=== PATIENT | male | born 1945 | race Two or more races ===

== ENCOUNTER 2023-10-10 12:37 | Inpatient (IN) | payer SELFPAY ==
[2023-10-10] VITALS (21 sets, daily range): BP systolic 139–187; BP diastolic 81–130; PULSE 78–171; RESP 16–30; TEMP 36.2–36.7; O2SAT 94–100
--- NOTE | ~2023-10-10 | XR_ITS ---
Portable chest x-ray Comparison: 10/10/2023 Clinical History: Shortness of breath Findings: Suspected minimal pleural effusions and minimal groundglass pulmonary disease. Cardiomedi astinal silhouette is stable. Bones and soft tissues are unremarkable. Impression: Suspected minimal pulmonary edema and minimal effusions. Reviewed, dictated and finalized at [facility]. DRIVER SUPERVISOR Impression: Suspected minimal pulmonary edema and minimal effusions.
--- NOTE | ~2023-10-10 | US_ITS ---
Duplex Sonography of the bilateral lower extremities: Indication: Swelling Sagittal and transverse B-mode images as well as color-flow imaging were performed on the right and l eft femoral and popliteal veins. B-mode examination was done without and with compression in the tra nsverse plane. There is good visualization of the bilateral common femoral, proximal profunda femora l, superficial femoral, greater saphenous, and popliteal veins. Normal flow was seen on color-flow im aging. Normal compressibility was demonstrated. Visualized calf veins are also patent. Impression: No evidence of deep vein thrombosis involving either lower extremity. Reviewed, dictated and finalized at location M. CLE TAXI DRIVER Impression: No evidence of deep vein thrombosis involving either lower extremit y.
--- NOTE | ~2023-10-10 | XR_ITS ---
EXAMINATION: XR chest 1V portable INDICATION: Tachycardia TECHNIQUE: Portable AP chest at 1400 hours COMPARISON: None available FINDINGS: There are mild interstitial and airspace opacities throughout the left lung and in the righ t lung base. No pleural effusion or pneumothorax. The cardiomediastinal silhouette is normal. IMPRESSION: 1. Interstitial and airspace opacities throughout the left lung and in the right lung base, consisten t with atelectasis versus pneumonia versus pulmonary edema. Reviewed, dictated and finalized at location L. DESIGN ENGINEER IMPRESSION: 1. Interstitial and airspace opacities throughout the left lung and in the righ t lung base, consistent with atelectasis versus pneumonia versus pulmonary moni savi
--- NOTE | ~2023-10-10 | CT_ITS ---
EXAMINATION: CTA chest PE protocol DATE: 10/10/2023 16:06 INDICATION: Dyspnea. TECHNIQUE: Computed tomography angiography (CTA) of the chest was performed with 100 mL Omnipaque-350 intravenous contrast timed to evaluate the pulmonary arteries. Coronal maximum intensity projection 3D-reconstructions were created by the technologist. Automated exposure control and iterative reconst ruction technique were employed. The dose-length product was 535.90 mGy-cm. COMPARISON: Chest single view 10/10/2023 FINDINGS: There is mild scarring at the lung apices. There are moderate-sized right and small left pl eural effusions. There is a 4 mm nodule in right upper lobe, likely benign. There is septal thickenin g in the upper lobes with small groundglass opacities, likely mild pulmonary edema. There is dependen t atelectasis in right lower lobe. Cardiomegaly is noted. There are coronary artery calcifications. T here is a small pericardial effusion. There is no pulmonary embolus. There are bridging endplate oste ophytes at multiple levels in the spine, consistent with diffuse idiopathic skeletal hyperostosis (DI SH). There is moderate thoracic spondylosis. IMPRESSION: 1. No pulmonary embolus. 2. Mild pulmonary edema. 3. Moderate-sized right and small left pleural effusions. Reviewed, dictated and finalized at location E. ICIAN COMPENSATION ANALYST
--- NOTE | 2023-10-10 12:43 | ECG_ITS ---
Measurements Intervals [place] Rate: 146 P: HI: 0 QRS: -46 QRSD: 88 T: 57 QT: 287 QTc: 448 Interpretive Statements ATRIAL FIBRILLATION WITH RAPID VENTRICULAR RESPONSE MARKED LEFT AXIS DEVIATION [QRS AXIS < -30] POSSIBLE ANTERIOR MYOCARDIAL INFARCTION , OF INDETERMINATE AGE [30 ms Q WAVE IN V3/V4, OR R < 0.2 mV IN V4] NO PREVIOUS ECG AVAILABLE FOR COMPARISON Electronically Signed On 10-10-2023 15:03:27 ASSISTANT GOLF COURSE SUPERINTENDENT by Jose Mason M.D.
[2023-10-10] MEDS: dilTIAZem HCl INJ 25 MG/5 ML VIAL 10 MG IV PUSH (13:25)
[2023-10-10] MEDS: dilTIAZem 100 MG/100 ML 100 MG/100 ML BAG IV CONT (13:31)
[2023-10-10 13:51] LABS: Basophils Percent Auto 0.3 % (0.2-1.2); Eosinophils Absolute Auto 0.2 K/mm3 (0-0.3); Eosinophils Percent Auto 2.7 % (0-4.4); Hematocrit 46.3 % (42.0-52.0); Hemoglobin 14.6 g/dL (14.0-18.0); Immature Granulocyte Absolute 0.02 K/mm3 (0.00-0.031); Immature Granulocyte Percent A 0.3 % (0-0.5); Lymphocytes Absolute Auto 2.11 K/mm3 (0.9-3.2); Mean Corpuscular HGB Conc 31.5 g/dl (32-36); Mean Corpuscular Hemoglobin 28.7 pg (26-34); Mean Platelet Volume 9.9 fl (7.4-10.4); Monocytes Absolute Auto 0.8 K/mm3 (0.1-0.6); Monocytes Percent Auto 10.7 % (2.6-8.5); Neutrophils Absolute Auto 3.9 K/mm3 (1.3-6.7); Platelet Count Result 242 k/mm3 (150-375); Red Blood Count 5.09 M/mm3 (4.6-6.20); Red Cell Distribution Width 13.2 % (11.5-14.5)
--- NOTE | 2023-10-10 13:51 | ECG_ITS ---
Measurements Intervals [place] Rate: 108 P: TN: 0 QRS: -44 QRSD: 76 T: 61 QT: 347 QTc: 466 Interpretive Statements ATRIAL FIBRILLATION WITH RAPID VENTRICULAR RESPONSE MARKED LEFT AXIS DEVIATION [QRS AXIS < -30] COMPARED TO ECG 10/10/2023 12:48:44 VENTRICULAR RATE IS SLOWER NOW Electronically Signed On 10-10-2023 15:04:59 VASCULAR TECHNOLOGIST SONOGRAPHER by Jose Mason M.D.
[2023-10-10 14:01] LABS: Prothrombin Time 13.6 Seconds (11.1-14.7)
[2023-10-10 14:02] LABS: Partial Thromboplastin Time 34.7 SECONDS (22.3-36.8)
[2023-10-10 14:09] LABS: NT Pro B Type Natriuretic Pept 3700 pg/mL (19.9-100); Troponin I < 0.012 ng/mL (0.000-0.034)
[2023-10-10 14:11] LABS: Alanine Aminotransferase 50 U/L (6-50); Albumin Level 3.8 g/dL (3.5-5.1); Alkaline Phosphatase 50 U/L (38-126); Anion Gap 5 mmol/L (8-16); Aspartate Amino Transferase 48 U/L (17-59); Bilirubin,Total 0.8 mg/dL (0.2-1.3); Blood Urea Nitrogen 17 mg/dL (9-20); Calcium 9.3 mg/dL (8.4-10.2); Carbon Dioxide 31 mmol/L (22-30); Chloride 102 mmol/L (98-107); Estimated CRCL calculation 81 ml/min; Estimated Glomerular Filt Rate > 60; Glucose 114 mg/dL (65-110); Magnesium 2.1 mg/dL (1.6-2.3); Potassium 4.5 mmol/L (3.4-5.0); Sodium 138 mmol/L (137-145)
[2023-10-10 14:20] LABS: Ethanol < 10 mg/dL (<10)
[2023-10-10 14:32] LABS: Magnesium 2.1 mg/dL (1.6-2.3)
[2023-10-10 14:39] LABS: D Dimer 1.18 ug/mL (<0.48)
[2023-10-10 14:49] LABS: Influenza A QL RT-PCR Negative (Negative); Influenza B QL RT-PCR Negative (Negative); RSV RNA, RT-PCR Positive (Negative); SARS-CoV-2 RNA PCR Negative (Negative)
--- NOTE | 2023-10-10 15:04 | ED.GENADULT ---
HPI - General Adult General Chief complaint: Recheck/Abnormal Lab/Rx Stated complaint: elevated BNP Time Seen by Provider: 10/10/23 13:47 Source: patient and family History of Present Illness HPI narrative: Patient is a 78-year-old male presents to the emergency department accompanied by his son and [id number] for difficulty breathing. patient is had difficulty breathing for years however it has been getting progressively worse over the past 10 days especially with exertion and requiring less exertion to get more short of breath in addition he is also having orthopnea. Patient has a history of heart disease has 2 stents which were placed in May and the where he lives issues currently visiting family. Family took the patient to 1 of the family members primary care physician who did labs and told to come to the your for further evaluation. Patient notably is on chlorthalidone 25 mg every other day and ran out of it and has not had any for the past 2 weeks and is also having increased leg swelling bilaterally. No history of blood clots. Patient denies any chest pain, bloody bowel movements, abdominal pain, nausea, vomiting, diarrhea, urinary discomfort, fever. patient does not have any history of abnormal heart rhythms. Patient is not on any blood thinners. Patient does not have any known history of heart failure and family does not know when the last echocardiogram was performed. Patient has had a cough for the past couple days that is overall nonproductive. Related Data Allergies Allergy/AdvReac Type Severity Reaction Status Date / Time No Known Allergies Allergy Verified 10/10/23 13:15 Review of Systems Review of Systems: A 10 system review of systems was completed on the patient and is negative except for what is stated in the HPI. Nursing and ancillary documentation was reviewed. PMFSH Comments At time of signature, I have reviewed and agree with nursing past medical, surgical, social and family history unless otherwise noted. Please see the nursing chart for further information. There is no relevant family history pertinent to the presenting complaint. Exam Narrative: CONST: No acute distress. Well nourished. HENMT: Head is normocephalic and atraumatic. Moist mucous membranes. No posterior oropharynx erythema. EYES: No conjunctival icterus, injection, or pallor. PERRL. NECK: No meningeal signs. RESP: Able to speak in full sentences. Normal respiratory effort. Diminished breath sounds at the bilateral bases of the lungs. No rhonchi or rales or wheeze. CARDIO: Regular rate. Irregularly irregular rhythm. 2+ DP and radial pulses bilaterally. GI: Nondistended. No tenderness to palpation. Soft. : No CVA tenderness to palpation. SKIN: No rashes or lesions noted on exposed skin. NEURO: Oriented x3. Moves all extremities. EXTREM/MSK/BACK: 1+ bilateral lower extremity pitting edema. PSYCH: Normal affect. Course Vital Signs Vital signs: Vital Signs Temperature 98.0 F 10/10/23 12:39 Pulse Rate 78 10/10/23 12:39 Respiratory Rate 16 10/10/23 12:39 Blood Pressure 163/130 H 10/10/23 12:39 Pulse Oximetry 98 10/10/23 12:39 Oxygen Delivery Room Air 10/10/23 12:39 Temperature 98.0 F 10/10/23 12:39 Pulse Rate 93 10/10/23 14:17 Respiratory Rate 22 H 10/10/23 14:17 Blood Pressure 143/92 H 10/10/23 14:17 Pulse Oximetry 97 10/10/23 14:17 Oxygen Delivery Room Air 10/10/23 12:39 Medical Decision Making MDM Narrative Medical decision making narrative: Patient presents with the above complaint. Initial vitals are remarkable for no significant abnormalities. Physical examination as noted above. Plan discussed: Laboratory analysis, EKG, chest x-ray, continues cardiac monitoring, continuous pulse oximetry, 80 mg IV push Lasix for suspected heart failure exacerbation, diltiazem 10 mg IV push for atrial fibrillation with rapid ventricular response,
[2023-10-10 16:39] LABS: Appearance Urine Clear (Clear); Bacteria Urine None Seen /hpf; Bilirubin Urine Negative (Negative); Blood Urine Negative (Negative); Calcium Oxalate Crystals Urine Present /hpf; Color Urine Yellow (Yellow); Glucose Urine UA Negative (Negative); Ketones Urine Negative (Negative); Leukocyte Esterase Ur Negative LEU/UL (Negative); Need Manual Microscopic Reviewed; Nitrate Urine Negative (Negative); Protein Urine Trace mg/dL (Negative); RBC Urine 0-2 /hpf (0-2); Specific Grav Ur 1.035 (1.001-1.035); Squamous Epithelial Cell Urine None seen /hpf (Few); WBC Urine 0-5 /hpf; pH Urine 5.5 (5.0-9.0)
[2023-10-10 16:40] LABS: Add Urine Microscopic? YES
[2023-10-10 16:41] LABS: Troponin I < 0.012 ng/mL (0.000-0.034)
[2023-10-10 16:49] LABS: Amphetamine Screen Urine Negative (Negative); Barbiturate Screen Urine Negative (Negative); Benzodiazepines Screen Urine Negative (Negative); Cannabinoid Screen Urine Negative (Negative); Cocaine Screen Urine Negative (Negative); Methadone Screen Urine Negative (Negative); Opiate Screen Urine Positive (Negative); Phencyclidine Screen Urine Negative (Negative)
[2023-10-10] MEDS: FUROSEMIDE INJ 100 MG/10 ML VIAL 80 MG IV PUSH (17:43)
[2023-10-10] MEDS: AZITHROMYCIN 500 MG/NS 250 ML 500 MG/250 ML BAG 250 MG IVPB (20:05)
--- NOTE | 2023-10-10 20:57 | PC.NURSE ---
This patient, Terra Orantes, was admitted to IMU Room 232-01. Patient/family oriented to hospital policies and general routines including ID bracelet, bed and alarms, visiting hours, pain management, procedures, bathroom and other care routines, personal items, smoking policy, room service/diet, and visiting hours. Information on how to activate the Rapid Response Team has been discussed. Patient/Family are encouraged to report perceived risks to care and to ask questions if they do not understand what they are told or what they should do.
--- NOTE | 2023-10-10 22:21 | PM.IMHP ---
H&P: HPI History of Present Illness Date/Time: 10/10/23 18:00 Chief Complaint: Shortness of breath. Narrative: This is a pleasant 78-year-old gentleman with history of stroke, coronary artery disease and history of stents as recent as 4 months ago, hypertension, type 2 diabetes mellitus, and asthma who presented to the emergency department via private vehicle for evaluation of shortness of breath. The patient's primary language is tim and his son and [id number] translate the following history. The patient lives in [place], [place] and has been staying with his family here for the last couple of months. Two weeks ago he ran out of his chlorthalidone but he has been taking his other medications as prescribed. Over the course of the last 10 days he has developed a cough, increasing shortness of breath on lesser and lesser exertion, and swelling in his lower extremities. Due to ongoing symptoms he was seen by his daughter in laws primary care provider and he was told to come to the ER today has lab work obtained at that visit showed an elevated proBNP. He denies fever, chills, sweats, chest and pleuritic pain, palpitations, dizziness, lightheadedness, nausea, vomiting, diarrhea, and calf pain. In the ED: He was afebrile on arrival. Blood pressures have been running high, in the 150s to 170s systolic. EKG on arrival showed atrial fibrillation with rapid ventricular response (patient is asymptomatic with this and has no known history of such) when he was started on a diltiazem drip with improvement in his rate. CMP and CBC were reviewed and pretty unremarkable. ProBNP was 3700. Initial troponin was negative and TSH was normal. He tested positive for RSV. Chest CTA showed no evidence of pulmonary embolus, mild pulmonary edema, and moderate size right and small left pleural effusions. He was started on a diltiazem drip as detailed above in received 80 mg IV furosemide in addition to 1 dose of azithromycin and ceftriaxone for possible pneumonia. He is being admitted in this setting for further treatment. Review of Systems Review of Systems: Twelve systems were reviewed and are negative except for as per HPI. [facility] Past Medical History Medical History (Updated 10/10/23 @ 22:28 by Lia Posey PA-C) Benign prostatic hyperplasia Carotid artery disease Cerebrovascular accident Coronary artery disease Hyperlipidemia Hypertension Surgical History Surgical History (Updated 10/10/23 @ 22:28 by Lia Posey PA-C) History of cardiac catheterization History of coronary artery stent placement (05/2023) X2 History of left-sided carotid endarterectomy Family History Family History Sibling Cerebrovascular accident Acute myocardial infarction Sibling Cerebrovascular accident Acute myocardial infarction Other Diabetes mellitus Social History Social History (Updated 10/10/23 @ 22:29 by Lia Posey PA-C) Social History: Surrogate medical decision maker: Geovany Griffin ([id number]) or Doni Orantes (son). Code status: Full code. Smoking status: Never smoker Alcohol intake: current Alcohol use details: Social alcohol use in moderation. Substance use: never Other substance usage details: occasional alcohol use Do You Feel Safe in your Home?: Yes Lack of Transportation: No Lack of Food: Never True Current Housing: I Have Housing Concerned About Future Housing: No Difficulty Paying Gas/Electric Bills: No Difficulty Paying for Meds: No Currently Unemployed: No Education: Decline to Answer Difficulty w/ Childcare or Family Care: No Additional living arrangements comments: Lives in [place], [place]. Currently visiting son and uafoahbe-mw-pjh in [place]. Additional occupation/education comments: Retired. Spiritual care concerns: No Meds Home Medications and Allergies Home Medications Medication Instructions
[2023-10-11] VITALS (17 sets, daily range): BP systolic 104–163; BP diastolic 59–100; PULSE 62–116; RESP 16–21; TEMP 36.1–37.2; O2SAT 95–98
[2023-10-11 05:46] LABS: Anion Gap 5 mmol/L (8-16); Blood Urea Nitrogen 14 mg/dL (9-20); Calcium 8.8 mg/dL (8.4-10.2); Carbon Dioxide 30 mmol/L (22-30); Chloride 102 mmol/L (98-107); Estimated CRCL calculation 80 ml/min; Estimated Glomerular Filt Rate > 60; Glucose 102 mg/dL (65-110); Magnesium 2.1 mg/dL (1.6-2.3); Potassium 3.7 mmol/L (3.4-5.0); Sodium 137 mmol/L (137-145)
[2023-10-11] MEDS: dilTIAZem 100 MG/100 ML 100 MG/100 ML BAG IV CONT (06:08)
[2023-10-11 08:53] LABS: Hematocrit 43.3 % (42.0-52.0); Hemoglobin 13.6 g/dL (14.0-18.0); Mean Corpuscular HGB Conc 31.4 g/dl (32-36); Mean Corpuscular Hemoglobin 28.8 pg (26-34); Mean Corpuscular Volume 91.5 fl (80-100); Platelet Count Result 240 k/mm3 (150-375); Red Blood Count 4.73 M/mm3 (4.6-6.20); Red Cell Distribution Width 13.3 % (11.5-14.5); White Blood Count 6.1 K/mm3 (4.5-10.0)
[2023-10-11] MEDS: METOPROLOL TARTRATE 50 MG TAB PO (10:02)
[2023-10-11] MEDS: TAMSULOSIN HCL 0.4 MG CAPSULE PO (10:02)
[2023-10-11] MEDS: APIXABAN 5 MG TABLET PO (10:02)
[2023-10-11] MEDS: ROSUVASTATIN 10 MG TABLET 40 MG PO (10:03)
[2023-10-11] MEDS: FUROSEMIDE INJ 40 MG/4 ML VIAL IV PUSH ×3 (10:03→17:50)
[2023-10-11] MEDS: MONTELUKAST SODIUM 10 MG TABLET PO (10:03)
[2023-10-11] MEDS: CHLORTHALIDONE 25 MG TABLET PO (12:30)
--- NOTE | 2023-10-11 13:11 | ECG_ITS ---
Measurements Intervals [place] Rate: 77 P: [place]: 0 QRS: -26 QRSD: 87 T: 10 QT: 419 QTc: 476 Interpretive Statements ATRIAL FIBRILLATION BORDERLINE LEFT AXIS DEVIATION [QRS AXIS < -20] NONSPECIFIC ST ELEVATION [0.05+ mV ST ELEVATION] ABNORMAL RHYTHM ECG COMPARED TO ECG 10/10/2023 14:37:10 VENTRICULAR RESPONSE TO ATRIAL FIBRILLATION IS NOW CONTROLLED Electronically Signed On 10-11-2023 15:43:35 CURRICULUM DEVELOPER by Rick Young M.D.
--- NOTE | 2023-10-11 13:38 | PM.CNCAR ---
Assessment and Plan Assessment and plan (1) Atrial fibrillation with RVR: Code(s): I48.91 - Unspecified atrial fibrillation Status: Acute Plan 78-year-old gentleman with a somewhat challenging situation since we do not have accurate medical records regarding his previous cardiac status. He comes to the hospital short of breath in atrial fibrillation and some element evidence of decompensated heart failure. I believe we should operate under the presumption that he has chronic atrial fibrillation since the family is now presenting prescriptions for diltiazem which were not on the regional medication list that was presented at the time of admission. It makes no sense at all and is of great concern that he is on no anti-platelet therapy at all. Had a long discussion with the [id number] and the patient that he needs to be anticoagulated but some anti-platelet therapy needs to be introduced as well. At this time I am going to prescribe his previous dose of oral diltiazem, stop the diltiazem drip. I am going to change his metoprolol to metoprolol succinate at a dosage of 50 mg daily. I will give him 1 dose of IV furosemide this afternoon and continue to follow him at with you during this hospitalization. Upon discharge he plans to stay in the [facility] area for about 3 or 4 more weeks before going back to [place]. It will be important that he has prescriptions for his medications at the time of discharge since he has not been taking his diltiazem or his diuretic likely the reason for he having a decompensation with RVR and volume overload. Regarding his anti-platelet therapy I am going to start clopidogrel 75 mg daily. We will not start aspirin in hopes of avoiding so-called triple therapy. Rick Young MD [facility] History of Present Illness History of Present Illness Consult date/time: 10/11/23 13:38 Reason For Visit: Heart Failure Exacerbation Narrative: This is a 78-year-old man I am seeing at the request of the hospitalist because of shortness of breath, CHF exacerbation, atrial fib with RVR, history of coronary artery disease. The history for this gentleman is rather challenging since he has never been [facility] before, receives his health care from his physician in [facility] and does not speak any [place]. Fortunately his daughter in laws in the room is able to translate effectively. The patient apparently came to this hospital yesterday with symptoms of worsening shortness of breath for the last week or so. He is visiting here from [facility] and will be here for another month at least. When he came here from [place] he provided the history that he was recently under the care of a snuff drier and underwent stenting of 1 of his coronary arteries in May of 2023. We do not have any information regarding the presentation of the hospitalization at that time or of the details of his coronary anatomy or the device implanted. He was found in the emergency room here to be in some respiratory distress felt to be in some heart failure and had atrial fibrillation with rapid ventricular response. He was treated since with some intravenous diltiazem which has nicely controlled his heart rate and he is chronically anticoagulated with apixaban. There was a lot of uncertainty regarding the reason for his ongoing anticoagulation or any other pathology that would present indication for this. The ER physicians in the hospitalists were initially of the impression that his atrial fibrillation was of new onset or at least of previously unknown onset. In the course of my conversation with the [id number] she presented medications that his snuff drier in [place] was prescribed which included long-acting diltiazem at 360 mg daily. Interestingly and of significant concern is he has on no sort of anti-platelet medication whatsoever. In this rather challenging situation I am seeing him in consultation today. He is seated
[2023-10-11] MEDS: dilTIAZem HCL CD 180 MG CAP.24HR 360 MG PO (14:25)
[2023-10-11] MEDS: CLOPIDOGREL BISULFATE 75 MG TABLET PO (14:25)
--- NOTE | 2023-10-11 17:48 | PM.IMPN ---
Progress Note: A&P Assessment and Plan (1) CHF exacerbation: Qualifiers: Heart failure type: unspecified Qualified Code(s): I50.9 - Heart failure, unspecified Code(s): I50.9 - Heart failure, unspecified Status: Acute Assessment and Plan: Cardiology on board; furosemide (2) Respiratory syncytial virus (RSV) infection: Code(s): B33.8 - Other specified viral diseases Status: Acute (3) Coronary artery disease: Code(s): I25.10 - Atherosclerotic heart disease of [place] coronary artery without angina pectoris Status: Acute (4) Atrial fibrillation with RVR: Code(s): I48.91 - Unspecified atrial fibrillation Status: Acute Assessment and Plan: Cardiology: I am going to prescribe his previous dose of oral diltiazem, stop the diltiazem drip.? I am going to change his metoprolol to metoprolol succinate at a dosage of 50 mg daily.? I will give him 1 dose of IV furosemide this afternoon and continue to follow him at with you during this hospitalization.? Upon discharge he plans to stay in the [facility] for about 3 or 4 more weeks before going back to [place].? It will be important that he has prescriptions for his medications at the time of discharge since he has not been taking his diltiazem or his diuretic likely the reason for he having a decompensation with RVR and volume overload.? Regarding his anti-platelet therapy I am going to start clopidogrel 75 mg daily.? We will not start aspirin in hopes of avoiding so-called triple therapy. (5) Hypertension: Code(s): I10 - Essential (primary) hypertension Status: Acute (6) Hyperlipidemia: Code(s): E78.5 - Hyperlipidemia, unspecified Status: Acute (7) Benign prostatic hyperplasia: Code(s): N40.0 - Benign prostatic hyperplasia without lower urinary tract symptoms Status: Acute Plan The patient presented to the emergency department for evaluation of shortness of breath as detailed in HPI. Labs, imaging, EKG, and all reports were personally reviewed. Clinically he appears to be volume overload with lower extremity edema and pleural effusions. He has apparently been out of his chlorthalidone for the past 2 weeks or so. He will be judiciously diuresed with close monitoring of volume status, renal function, and electrolytes. His shortness of breath is likely due to a combination of factors including mild volume overload, atrial fibrillation, and RSV. He was given a dose of azithromycin and ceftriaxone in the ED however pneumonia seems less likely and we will hold on further antibiotics at this time. He believes that he had an echocardiogram done last fall and records will be requested from his doctor's in [place]. Regarding the atrial fibrillation, he thinks this is a new diagnosis for him however he is on apixaban and metoprolol at home and he may very well have underlying paroxysmal atrial fibrillation. Continue diltiazem drip and wean as tolerated. Bronchodilators available p.r.n. given his wheezing. Otherwise supportive care for the RSV. His home medications will be reviewed and resumed as appropriate. Findings and treatment plan were discussed with the patient and his family. Questions were solicited and answered to satisfaction. The patient's medical management will be taken over by the hospitalist team in a.m. Time Spent With Patient Time with patient: 25 - 35 minutes Subjective Date/time seen: 10/11/23 17:48 Interval history: Seen and examined; no fresh concerns discussed with daughter; poor compliance with medications Review of Systems Review of Systems: Twelve systems were reviewed and are negative except for as per HPI. Constitutional: Constitutional: Reports fatigue Eyes: Eyes: Reports no additional eye complaints ENT: Reports system reviewed and no additional complaints, except as documented and Reports Normal hearing present Cardiovascular: Cardiovascular: Reports ped
[2023-10-12] VITALS (15 sets, daily range): BP systolic 136–144; BP diastolic 60–78; PULSE 64–112; RESP 16–20; TEMP 36.1–36.6; O2SAT 94–99
--- NOTE | 2023-10-12 | ECHO_ITS ---
Patient Info Name: Terra Orantes Age: 78 years : 1945 Gender: Male Ht: 74 in Wt: 236 lbs BSA: 2.39 m2 HR: 88 bpm BP: 140 / 70 mmHg Heart Rhythm: Atrial Fibrillation Technical Quality: Fair Exam Date: 10/12/2023 11:18 AM Exam Location: Echo Lab Exam Room: 232 Patient Status: Inpatient Admit Date: 10/10/2023 Staff Ordering Physician: Chris Flowers MD Barrel Finisher: Anita Lyles RDCS Attending Provider: Elbert Dasilva MD Referring Physician: Kristie KIM; Exam Type: CA echo doppler color flow Study Info Indications - afib cad stents htn Complete two-dimensional, color flow and Doppler transthoracic echocardiogram is performed with contrast to opacify the left ventricle and to improve the deliniation of the left ventricle endocardial borders. Contrast/Agitated Saline Contrast/Ag. Saline: Definity Amount: 2.00 ml Administered By: Anita Lyles [facility] Existing IV Access: Yes IV Access Condition: patent with no signs of infiltration Summary 1. Left ventricular chamber dimension is normal. 2. Left ventricular systolic function is normal, estimated at 60-65%. 3. There is no increased left ventricular wall thickness. 4. The basal anterolateral wall, and mid anterolateral wall are hypokinetic. 5. Left atrial chamber dimension is mildly enlarged. 6. There is mild mitral valve regurgitation. 7. There is mild tricuspid valve regurgitation. 8. Mild pulmonary hypertension, estimated pulmonary arterial systolic pressure is 44 mmHg. 9. There is mild pulmonic regurgitation. 10. There is small pericardial effusion. Left Ventricle Left ventricular chamber dimension is normal. Left ventricular systolic function is normal, estimated at 60-65%. There is no increased left ventricular wall thickness. The basal anterolateral wall, and mid anterolateral wall are hypokinetic. All other beal appear normal. Right Ventricle Right ventricular chamber dimension is normal. Right ventricular systolic function is normal. Left Atria Left atrial chamber dimension is mildly enlarged. Right Atria Right atrial chamber dimension is normal. Atrial Septum Intact interatrial septum visualized by color flow imaging. Aortic Valve The aortic valve is trileaflet. There is mild aortic valve sclerosis. There is no aortic valve stenosis. There is trace aortic valve regurgitation. Pulmonic Valve The pulmonic valve is normal. There is no pulmonic valve stenosis. There is mild pulmonic regurgitation. Mitral Valve The mitral valve has thickened leaflets. There is no mitral valve stenosis. There is mild mitral valve regurgitation. Tricuspid Valve The tricuspid valve leaflets are normal. There is no significant tricuspid valve stenosis. There is mild tricuspid valve regurgitation. Mild pulmonary hypertension, estimated pulmonary arterial systolic pressure is 44 mmHg. Pericardium/Pleural The pericardium appears normal. There is small pericardial effusion. Inferior Vena Cava Dilated inferior vena cava with >50% collapse upon inspiration consistent with normal right atrial pressure, 10 mmHg. Aorta The aortic root size at the sinus of Valsalva is normal. Left Ventricular Outflow Tract Name Value Normal LVOT 2D LVOT Diameter 2.
[2023-10-12 05:59] LABS: Basophils Percent Auto 0.3 % (0.2-1.2); Eosinophils Absolute Auto 0.2 K/mm3 (0-0.3); Eosinophils Percent Auto 3.5 % (0-4.4); Hematocrit 41.1 % (42.0-52.0); Hemoglobin 13.2 g/dL (14.0-18.0); Immature Granulocyte Absolute 0.02 K/mm3 (0.00-0.031); Immature Granulocyte Percent A 0.3 % (0-0.5); Lymphocytes Absolute Auto 1.69 K/mm3 (0.9-3.2); Lymphocytes Percent Auto 28.1 % (18.3-44.2); Mean Corpuscular HGB Conc 32.1 g/dl (32-36); Mean Corpuscular Hemoglobin 29.3 pg (26-34); Mean Corpuscular Volume 91.1 fl (80-100); Mean Platelet Volume 9.4 fl (7.4-10.4); Monocytes Absolute Auto 0.6 K/mm3 (0.1-0.6); Monocytes Percent Auto 10.1 % (2.6-8.5); Neutrophils Absolute Auto 3.5 K/mm3 (1.3-6.7); Neutrophils Percent Auto 57.7 % (45.5-73.1); Platelet Count Result 247 k/mm3 (150-375); Red Blood Count 4.51 M/mm3 (4.6-6.20); Red Cell Distribution Width 12.9 % (11.5-14.5)
[2023-10-12 06:10] LABS: Alanine Aminotransferase 31 U/L (6-50); Albumin Level 3.5 g/dL (3.5-5.1); Alkaline Phosphatase 57 U/L (38-126); Anion Gap 6 mmol/L (8-16); Aspartate Amino Transferase 30 U/L (17-59); Bilirubin,Total 0.7 mg/dL (0.2-1.3); Blood Urea Nitrogen 17 mg/dL (9-20); Calcium 8.8 mg/dL (8.4-10.2); Carbon Dioxide 32 mmol/L (22-30); Chloride 101 mmol/L (98-107); Estimated CRCL calculation 61 ml/min; Estimated Glomerular Filt Rate 59; Glucose 112 mg/dL (65-110); Potassium 3.2 mmol/L (3.4-5.0); Sodium 139 mmol/L (137-145)
--- NOTE | 2023-10-12 09:34 | PM.PNCARD ---
Progress Note: A&P Assessment and Plan (1) Atrial fibrillation with RVR: Code(s): I48.91 - Unspecified atrial fibrillation Status: Acute Assessment and Plan: Continue oral diltiazem and metoprolol. Continue Eliquis. (2) Coronary artery disease: Code(s): I25.10 - Atherosclerotic heart disease of [place] coronary artery without angina pectoris Status: Acute Assessment and Plan: Clopidogrel added yesterday. No aspirin to be given to avoid triple therapy. Continue rosuvastatin, metoprolol (3) Hypertension: Code(s): I10 - Essential (primary) hypertension Status: Acute Assessment and Plan: Fairly well controlled (4) Hypokalemia: Code(s): E87.6 - Hypokalemia Status: Acute Assessment and Plan: Potassium 3.2 today. KCL 40 mEq p.o. x1 (5) CHF exacerbation: Qualifiers: Heart failure type: unspecified Qualified Code(s): I50.9 - Heart failure, unspecified Code(s): I50.9 - Heart failure, unspecified Status: Acute Assessment and Plan: Probably diastolic in etiology and worsened by AFib RVR. Continue iV diuresis. Order a 2D echocardiogram Doppler Subjective Date/time seen: 10/12/23 09:34 Interval history: This is a pleasant 78-year-old gentleman with history of stroke, coronary artery disease and history of stents as recent as 4 months ago, hypertension, type 2 diabetes mellitus, and asthma who presented to the emergency department via private vehicle for evaluation of shortness of breath. Date of service 10/12/2023: He states that he feels little better. Breathing is better. No chest pain. Review of Systems Constitutional: Constitutional: Reports fatigue and Reports lethargy Eyes: Eyes: Reports no additional eye complaints ENT: Reports system reviewed and no additional complaints, except as documented Cardiovascular: Cardiovascular: Reports pedal edema and Reports dyspnea Respiratory: Respiratory: Reports dyspnea and Reports wheezing Gastrointestinal: Gastrointestinal: Reports no additional gastrointestinal complaints Musculoskeletal: Musculoskeletal: Reports no additional musculoskeletal complaints Integumentary/Breasts: Skin/Breast: Reports system reviewed and no additional complaints, except as docu Neurologic: Reports system reviewed and no additional complaints, except as documented Endocrine: Endocrine: Reports no additional endocrine complaints and Reports fatigue Hematologic/Lymphatic: Hematologic/Lymphatic: Reports no additional hematologic/lymphatic complaints Allergic/Immunologic: Allergic/Immunologic: Reports no additional allergic/immunologic complaints and Reports wheezing Exam Const: Other: Well-developed well-nourished gentleman appearing a bit older than his stated age in sum respiratory distress at this time HENMT: Mouth: Yes moist mucous membranes Eyes: Sclera: sclerae normal Neck: Neck: supple Other: Mild elevation of jugular venous pressure about 2 cm of JVD noted. Carotid pulses are unremarkable bilaterally Resp: Effort & Inspection: normal respiratory effort Auscultation: wheezes Cardio: Rate: regular rate Rhythm: abnormal rhythm irregularly irregular GI: Auscultation: normal bowel sounds Skin: General skin exam: normal color Neuro: Other: Alert and oriented Extrem: General: normal to inspection Other: Adequate perfusion, mild bipedal edema Psych: Affect: normal affect Objective Data Vital Signs Vital Signs: Vital Signs - 24 hr 10/11/23 10:02 10/11/23 10:00 10/11/23 12:00 Temperature 37.2 C Pulse Rate 111 H 101 H 62 Respiratory Rate 16 Blood Pressure 104/59 L Pulse Oximetry 97 10/11/23 15:52 10/11/23 12:00 10/11/23 14:00 Temperature 36.7 C Pulse Rate 86 70 79 Respiratory Rate 16 Blood Pressure 124/65 Pulse Oximetry 95 10/11/23 16:00 10/11/23 18:00 10/11/23 20:00 Temperature 36.5 C Pulse
[2023-10-12] MEDS: APIXABAN 5 MG TABLET PO (10:31)
[2023-10-12] MEDS: dilTIAZem HCL CD 180 MG CAP.24HR 360 MG PO (10:31)
[2023-10-12] MEDS: ROSUVASTATIN 10 MG TABLET 40 MG PO (10:32)
[2023-10-12] MEDS: METOPROLOL SUCCINATE EXT REL 50 MG TABCR PO (10:33)
[2023-10-12] MEDS: TAMSULOSIN HCL 0.4 MG CAPSULE PO (10:33)
[2023-10-12] MEDS: CLOPIDOGREL BISULFATE 75 MG TABLET PO (10:33)
[2023-10-12] MEDS: MONTELUKAST SODIUM 10 MG TABLET PO (10:33)
[2023-10-12] MEDS: CHLORTHALIDONE 25 MG TABLET PO (10:33)
[2023-10-12] MEDS: FUROSEMIDE INJ 40 MG/4 ML VIAL IV PUSH ×2 (10:34→16:46)
[2023-10-12] MEDS: POTASSIUM CHLORIDE 20 MEQ ER TABLET 40 MEQ PO (10:35)
[2023-10-12] MEDS: PERFLUTREN LIPID MICROSPHERES 1.5 ML VIAL DILUTED TO 10 ML TOTAL VOLUME IV PUSH (11:40)
--- NOTE | 2023-10-12 11:54 | IVDEFINITY ---
Prior to administration of IV Definity the patient was educated on the risks and benefits of the imaging enhancing agent including potential adverse side effects. The patient verbalized understanding. Allergies were verified. No exclusion criteria were identified and at least one of the following inclusion criteria were met: 1) physician request, 2) patient technically difficult to image (per the [place] [employer] guidelines of two or more segments not discernable within the apical view), or 3) questionable left ventricular function. ?
[2023-10-12] MEDS: guaiFENesin/DEXTROMETHORPHAN 10 ML UDC PO ×2 (14:52→20:51)
--- NOTE | 2023-10-12 16:12 | PM.IMPN ---
Progress Note: A&P Assessment and Plan (1) CHF exacerbation: Qualifiers: Heart failure type: unspecified Qualified Code(s): I50.9 - Heart failure, unspecified Code(s): I50.9 - Heart failure, unspecified Status: Acute Assessment and Plan: Cardiology on board; furosemide (2) Respiratory syncytial virus (RSV) infection: Code(s): B33.8 - Other specified viral diseases Status: Acute Assessment and Plan: Bilateral rales wtih rhonchi Bilateral pedal edema (3) Coronary artery disease: Code(s): I25.10 - Atherosclerotic heart disease of [place] coronary artery without angina pectoris Status: Acute (4) Atrial fibrillation with RVR: Code(s): I48.91 - Unspecified atrial fibrillation Status: Acute Assessment and Plan: Cardiology: I am going to prescribe his previous dose of oral diltiazem, stop the diltiazem drip.? I am going to change his metoprolol to metoprolol succinate at a dosage of 50 mg daily.? I will give him 1 dose of IV furosemide this afternoon and continue to follow him at with you during this hospitalization.? Upon discharge he plans to stay in the [facility] for about 3 or 4 more weeks before going back to [place].? It will be important that he has prescriptions for his medications at the time of discharge since he has not been taking his diltiazem or his diuretic likely the reason for he having a decompensation with RVR and volume overload.? Regarding his anti-platelet therapy I am going to start clopidogrel 75 mg daily.? We will not start aspirin in hopes of avoiding so-called triple therapy. (5) Hypertension: Code(s): I10 - Essential (primary) hypertension Status: Acute (6) Hyperlipidemia: Code(s): E78.5 - Hyperlipidemia, unspecified Status: Acute (7) Benign prostatic hyperplasia: Code(s): N40.0 - Benign prostatic hyperplasia without lower urinary tract symptoms Status: Acute Plan The patient presented to the emergency department for evaluation of shortness of breath as detailed in HPI. Labs, imaging, EKG, and all reports were personally reviewed. Clinically he appears to be volume overload with lower extremity edema and pleural effusions. He has apparently been out of his chlorthalidone for the past 2 weeks or so. He will be judiciously diuresed with close monitoring of volume status, renal function, and electrolytes. His shortness of breath is likely due to a combination of factors including mild volume overload, atrial fibrillation, and RSV. He was given a dose of azithromycin and ceftriaxone in the ED however pneumonia seems less likely and we will hold on further antibiotics at this time. He believes that he had an echocardiogram done last fall and records will be requested from his doctor's in [place]. Regarding the atrial fibrillation, he thinks this is a new diagnosis for him however he is on apixaban and metoprolol at home and he may very well have underlying paroxysmal atrial fibrillation. Continue diltiazem drip and wean as tolerated. Bronchodilators available p.r.n. given his wheezing. Otherwise supportive care for the RSV. His home medications will be reviewed and resumed as appropriate. Findings and treatment plan were discussed with the patient and his family. Questions were solicited and answered to satisfaction. Time Spent With Patient Time with patient: 25 - 35 minutes Subjective Date/time seen: 10/12/23 16:12 Interval history: This is a pleasant 78-year-old gentleman with history of stroke, coronary artery disease and history of stents as recent as 4 months ago, hypertension, type 2 diabetes mellitus, and asthma who presented to the emergency department via private vehicle for evaluation of shortness of breath. Date of service 10/12/2023: He states that he feels little better. Breathing is better. No chest pain. Review of Systems Review of Systems: Twelve systems were reviewed and are
[2023-10-12] MEDS: DOXYCYCLINE 100 MG/NS 100 ML 100 MG/100 ML BAG IVPB (16:46)
[2023-10-12 17:02] LABS: NT Pro B Type Natriuretic Pept 784 pg/mL (19.9-100)
[2023-10-12 17:10] LABS: Procalcitonin 0.1 ng/mL
[2023-10-13] VITALS (14 sets, daily range): BP systolic 130–137; BP diastolic 56–78; PULSE 58–86; RESP 18–21; TEMP 36.3–36.4; O2SAT 97–99
[2023-10-13] MEDS: DOXYCYCLINE 100 MG/NS 100 ML 100 MG/100 ML BAG IVPB ×2 (05:13→17:48)
[2023-10-13 05:16] LABS: Basophils Percent Auto 0.3 % (0.2-1.2); Eosinophils Absolute Auto 0.3 K/mm3 (0-0.3); Eosinophils Percent Auto 3.8 % (0-4.4); Hematocrit 40.7 % (42.0-52.0); Hemoglobin 13.3 g/dL (14.0-18.0); Immature Granulocyte Absolute 0.03 K/mm3 (0.00-0.031); Immature Granulocyte Percent A 0.4 % (0-0.5); Lymphocytes Absolute Auto 2.19 K/mm3 (0.9-3.2); Lymphocytes Percent Auto 30.7 % (18.3-44.2); Mean Corpuscular HGB Conc 32.7 g/dl (32-36); Mean Corpuscular Hemoglobin 29.2 pg (26-34); Mean Corpuscular Volume 89.5 fl (80-100); Mean Platelet Volume 9.4 fl (7.4-10.4); Monocytes Absolute Auto 0.7 K/mm3 (0.1-0.6); Monocytes Percent Auto 9.7 % (2.6-8.5); Neutrophils Absolute Auto 3.9 K/mm3 (1.3-6.7); Neutrophils Percent Auto 55.1 % (45.5-73.1); Platelet Count Result 264 k/mm3 (150-375); Red Blood Count 4.55 M/mm3 (4.6-6.20); Red Cell Distribution Width 12.7 % (11.5-14.5); White Blood Count 7.1 K/mm3 (4.5-10.0)
[2023-10-13 05:34] LABS: Alanine Aminotransferase 30 U/L (6-50); Albumin Level 3.8 g/dL (3.5-5.1); Alkaline Phosphatase 55 U/L (38-126); Anion Gap 4 mmol/L (8-16); Aspartate Amino Transferase 31 U/L (17-59); Bilirubin,Total 0.5 mg/dL (0.2-1.3); Blood Urea Nitrogen 20 mg/dL (9-20); Calcium 8.9 mg/dL (8.4-10.2); Carbon Dioxide 35 mmol/L (22-30); Chloride 99 mmol/L (98-107); Estimated CRCL calculation 66 ml/min; Estimated Glomerular Filt Rate > 60; Glucose 136 mg/dL (65-110); Potassium 3.3 mmol/L (3.4-5.0); Sodium 138 mmol/L (137-145)
--- NOTE | 2023-10-13 10:06 | PM.PNCARD ---
Progress Note: A&P Assessment and Plan (1) Atrial fibrillation with RVR: Code(s): I48.91 - Unspecified atrial fibrillation Status: Acute Assessment and Plan: Continue oral diltiazem and metoprolol. Continue Eliquis. (2) Coronary artery disease: Code(s): I25.10 - Atherosclerotic heart disease of [place] coronary artery without angina pectoris Status: Acute Assessment and Plan: Clopidogrel added. No aspirin to be given to avoid triple therapy. Continue rosuvastatin, metoprolol (3) Hypertension: Code(s): I10 - Essential (primary) hypertension Status: Acute Assessment and Plan: Fairly well controlled (4) Hypokalemia: Code(s): E87.6 - Hypokalemia Status: Acute Assessment and Plan: Potassium is low today again. Will give 40 mEq p.o. x1 (5) CHF exacerbation: Qualifiers: Heart failure type: unspecified Qualified Code(s): I50.9 - Heart failure, unspecified Code(s): I50.9 - Heart failure, unspecified Status: Acute Assessment and Plan: Probably diastolic in etiology and worsened by AFib RVR. Will reduce his furosemide to 40 mg IV daily and transition to oral tomorrow. Subjective Date/time seen: 10/13/23 10:06 Interval history: This is a pleasant 78-year-old gentleman with history of stroke, coronary artery disease and history of stents as recent as 4 months ago, hypertension, type 2 diabetes mellitus, and asthma who presented to the emergency department via private vehicle for evaluation of shortness of breath. Date of service 10/12/2023: He states that he feels little better. Breathing is better. No chest pain. Date of service 10/13/2023: Has a little swelling his right foot but no chest pain, shortness breath Review of Systems Constitutional: Constitutional: Reports fatigue and Reports lethargy Eyes: Eyes: Reports no additional eye complaints ENT: Reports system reviewed and no additional complaints, except as documented Cardiovascular: Cardiovascular: Reports pedal edema and Reports dyspnea Respiratory: Respiratory: Reports dyspnea and Reports wheezing Gastrointestinal: Gastrointestinal: Reports no additional gastrointestinal complaints Musculoskeletal: Musculoskeletal: Reports no additional musculoskeletal complaints Integumentary/Breasts: Skin/Breast: Reports system reviewed and no additional complaints, except as docu Neurologic: Reports system reviewed and no additional complaints, except as documented Endocrine: Endocrine: Reports no additional endocrine complaints and Reports fatigue Hematologic/Lymphatic: Hematologic/Lymphatic: Reports no additional hematologic/lymphatic complaints Allergic/Immunologic: Allergic/Immunologic: Reports no additional allergic/immunologic complaints and Reports wheezing Exam Const: Other: Well-developed well-nourished gentleman HENMT: Mouth: Yes moist mucous membranes Eyes: Sclera: sclerae normal Neck: Neck: supple Other: Mild elevation of jugular venous pressure about 2 cm of JVD noted. Carotid pulses are unremarkable bilaterally Resp: Effort & Inspection: normal respiratory effort Auscultation: wheezes Other: Increased work of breathing, prolonged expiratory phase and diffuse wheezing Cardio: Rate: regular rate Rhythm: abnormal rhythm irregularly irregular GI: Auscultation: normal bowel sounds Skin: General skin exam: normal color Neuro: Other: Alert and oriented Extrem: General: normal to inspection Other: Adequate perfusion, mild bipedal edema Psych: Affect: normal affect Objective Data Vital Signs Vital Signs: Vital Signs - 24 hr 10/12/23 12:00 10/12/23 16:00 10/12/23 12:00 Temperature 36.1 C L 36.2 C L Pulse Rate 82 112 H Respiratory Rate 20 16 Blood Pressure 144/72 H 139/78 Pulse Oximetry 98 97 Oxygen Delivery Room Air 10/12/23 16:00 10/12/23 12:00 10/12/23 14:00 Temperatu
[2023-10-13] MEDS: POTASSIUM CHLORIDE 20 MEQ ER TABLET 40 MEQ PO (11:08)
[2023-10-13] MEDS: FUROSEMIDE INJ 40 MG/4 ML VIAL IV PUSH (11:08)
[2023-10-13] MEDS: CLOPIDOGREL BISULFATE 75 MG TABLET PO (11:09)
[2023-10-13] MEDS: ROSUVASTATIN 10 MG TABLET 40 MG PO (11:09)
[2023-10-13] MEDS: TAMSULOSIN HCL 0.4 MG CAPSULE PO (11:09)
[2023-10-13] MEDS: dilTIAZem HCL CD 180 MG CAP.24HR 360 MG PO (11:09)
[2023-10-13] MEDS: APIXABAN 5 MG TABLET PO (11:09)
[2023-10-13] MEDS: MONTELUKAST SODIUM 10 MG TABLET PO (11:09)
[2023-10-13] MEDS: CHLORTHALIDONE 25 MG TABLET PO (11:09)
[2023-10-13] MEDS: METOPROLOL SUCCINATE EXT REL 50 MG TABCR PO (11:09)
--- NOTE | 2023-10-13 13:50 | PC.NURSE ---
This patient, Terra Orantes, was transferred to [facility] on 10/13/23 at 1350. Personal belongings sent with patient. Report given to Cherry MENDIOLA. Appropriate documentation sent with patient.
--- NOTE | 2023-10-13 15:11 | PM.IMPN ---
Progress Note: A&P Assessment and Plan (1) CHF exacerbation: Qualifiers: Heart failure type: unspecified Qualified Code(s): I50.9 - Heart failure, unspecified Code(s): I50.9 - Heart failure, unspecified Status: Acute Assessment and Plan: Cardiology on board; furosemide (2) Respiratory syncytial virus (RSV) infection: Code(s): B33.8 - Other specified viral diseases Status: Acute Assessment and Plan: Bilateral rales wtih rhonchi Bilateral pedal edema (3) Coronary artery disease: Code(s): I25.10 - Atherosclerotic heart disease of [place] coronary artery without angina pectoris Status: Acute (4) Atrial fibrillation with RVR: Code(s): I48.91 - Unspecified atrial fibrillation Status: Acute Assessment and Plan: Cardiology: I am going to prescribe his previous dose of oral diltiazem, stop the diltiazem drip.? I am going to change his metoprolol to metoprolol succinate at a dosage of 50 mg daily.? I will give him 1 dose of IV furosemide this afternoon and continue to follow him at with you during this hospitalization.? Upon discharge he plans to stay in the [facility] for about 3 or 4 more weeks before going back to [place].? It will be important that he has prescriptions for his medications at the time of discharge since he has not been taking his diltiazem or his diuretic likely the reason for he having a decompensation with RVR and volume overload.? Regarding his anti-platelet therapy I am going to start clopidogrel 75 mg daily.? We will not start aspirin in hopes of avoiding so-called triple therapy. (5) Hypertension: Code(s): I10 - Essential (primary) hypertension Status: Acute (6) Hyperlipidemia: Code(s): E78.5 - Hyperlipidemia, unspecified Status: Acute (7) Benign prostatic hyperplasia: Code(s): N40.0 - Benign prostatic hyperplasia without lower urinary tract symptoms Status: Acute (8) Asthma exacerbation: Code(s): J45.901 - Unspecified asthma with (acute) exacerbation Status: Acute Plan Acute and principal conditions 1. Acute hypoxic respiratory failure 2. Asthma exacerbation 3. Fluid overload; Probable CHF exacerbation 4. RSV infection; URI 5. CAD. IV lasix, Ceftriaxone, Doxycycline DuoNebs; Supplemental oxygen IS; PEP; Anti-tussives Montelukast Plavix, BB, Statin Chronic and stable conditions 1. Chronic A-fib; wRVR. On Metoprolol, Eliquis 2. Hypertension. On Chlorthalidone, Metoprolol 3. Dyslipidemia. On Statin 4. BPH. on Tamsulosin Miscellaneous care. Code status. Full Disposition. Likely home when stable VTE prophylaxis. on Eliquis Nutrition. Heart healthy Time Spent With Patient Time with patient: 25 - 35 minutes Subjective Date/time seen: 10/13/23 15:11 Interval history: This is a pleasant 78-year-old gentleman with history of stroke, coronary artery disease and history of stents as recent as 4 months ago, hypertension, type 2 diabetes mellitus, and asthma who presented to the emergency department via private vehicle for evaluation of shortness of breath. 10/12/2023: He states that he feels little better. Breathing is better. No chest pain. 10/13/2023: Improved cough; lower extremity swellings are improving Review of Systems Review of Systems: Twelve systems were reviewed and are negative except for as per HPI. Constitutional: Constitutional: Reports fatigue Eyes: Eyes: Reports no additional eye complaints ENT: Reports system reviewed and no additional complaints, except as documented and Reports Normal hearing present Cardiovascular: Cardiovascular: Reports pedal edema, Reports leg edema and Reports dyspnea Respiratory: Respiratory: Reports cough, Reports dyspnea and Reports wheezing Gastrointestinal: Gastrointestinal: Reports no additional gastrointestinal complaints Genitourinary: Genitourinary: Reports no additional male genitourinary com
[2023-10-13 16:50] LABS: Glucose Point of Care 140 mg/dl (65-105)
[2023-10-13] MEDS: methylPREDNISolone SOD SUCC 40 MG VIAL IV PUSH (17:49)
[2023-10-13] MEDS: guaiFENesin/DEXTROMETHORPHAN 10 ML UDC PO (20:24)
[2023-10-13 21:21] LABS: Glucose Point of Care 145 mg/dl (65-105)
[2023-10-13] MEDS: IPRATROPIUM 0.5 MG/ALBUTEROL SULFATE 2.5 MG AMPUL.NEB 3 ML INHALATION (23:28)
[2023-10-14] VITALS (12 sets, daily range): BP systolic 119–134; BP diastolic 52–66; PULSE 60–81; RESP 16–21; TEMP 36.6–37; O2SAT 94–98
[2023-10-14] MEDS: DOXYCYCLINE 100 MG/NS 100 ML 100 MG/100 ML BAG IVPB ×2 (05:37→18:03)
[2023-10-14 06:39] LABS: Hematocrit 40.2 % (42.0-52.0); Hemoglobin 13.1 g/dL (14.0-18.0); Immature Granulocyte Absolute 0.03 K/mm3 (0.00-0.031); Immature Granulocyte Percent A 0.5 % (0-0.5); Lymphocytes Absolute Auto 1.03 K/mm3 (0.9-3.2); Lymphocytes Percent Auto 16.4 % (18.3-44.2); Mean Corpuscular HGB Conc 32.6 g/dl (32-36); Mean Corpuscular Hemoglobin 28.9 pg (26-34); Mean Corpuscular Volume 88.7 fl (80-100); Mean Platelet Volume 9.7 fl (7.4-10.4); Monocytes Absolute Auto 0.1 K/mm3 (0.1-0.6); Monocytes Percent Auto 1.4 % (2.6-8.5); Neutrophils Absolute Auto 5.1 K/mm3 (1.3-6.7); Neutrophils Percent Auto 81.7 % (45.5-73.1); Platelet Count Result 291 k/mm3 (150-375); Red Blood Count 4.53 M/mm3 (4.6-6.20); Red Cell Distribution Width 12.7 % (11.5-14.5); White Blood Count 6.3 K/mm3 (4.5-10.0)
[2023-10-14 07:23] LABS: Alanine Aminotransferase 27 U/L (6-50); Alkaline Phosphatase 54 U/L (38-126); Anion Gap 7 mmol/L (8-16); Aspartate Amino Transferase 32 U/L (17-59); Bilirubin,Total 0.5 mg/dL (0.2-1.3); Blood Urea Nitrogen 22 mg/dL (9-20); Calcium 9.3 mg/dL (8.4-10.2); Carbon Dioxide 29 mmol/L (22-30); Chloride 100 mmol/L (98-107); Estimated CRCL calculation 66 ml/min; Estimated Glomerular Filt Rate > 60; Glucose 171 mg/dL (65-110); Potassium 3.8 mmol/L (3.4-5.0); Sodium 136 mmol/L (137-145)
[2023-10-14 07:35] LABS: Glucose Point of Care 158 mg/dl (65-105)
[2023-10-14] MEDS: IPRATROPIUM 0.5 MG/ALBUTEROL SULFATE 2.5 MG AMPUL.NEB 3 ML INHALATION ×2 (08:53→16:07)
[2023-10-14] MEDS: CLOPIDOGREL BISULFATE 75 MG TABLET PO (09:07)
[2023-10-14] MEDS: ROSUVASTATIN 10 MG TABLET 40 MG PO (09:07)
[2023-10-14] MEDS: TAMSULOSIN HCL 0.4 MG CAPSULE PO (09:07)
[2023-10-14] MEDS: ACETAMINOPHEN 325 MG TABLET 650 MG PO (09:07)
[2023-10-14] MEDS: dilTIAZem HCL CD 180 MG CAP.24HR 360 MG PO (09:07)
[2023-10-14] MEDS: CHLORTHALIDONE 25 MG TABLET PO (09:07)
[2023-10-14] MEDS: methylPREDNISolone SOD SUCC 40 MG VIAL IV PUSH ×2 (09:07→18:05)
[2023-10-14] MEDS: APIXABAN 5 MG TABLET PO (09:08)
[2023-10-14] MEDS: FUROSEMIDE INJ 40 MG/4 ML VIAL IV PUSH (09:08)
[2023-10-14] MEDS: METOPROLOL SUCCINATE EXT REL 50 MG TABCR PO (09:08)
[2023-10-14] MEDS: MONTELUKAST SODIUM 10 MG TABLET PO (09:09)
[2023-10-14 11:20] LABS: Glucose Point of Care 250 mg/dl (65-105)
--- NOTE | 2023-10-14 16:24 | PM.IMPN ---
Progress Note: A&P Assessment and Plan (1) CHF exacerbation: Qualifiers: Heart failure type: unspecified Qualified Code(s): I50.9 - Heart failure, unspecified Code(s): I50.9 - Heart failure, unspecified Status: Acute Assessment and Plan: Cardiology on board; furosemide (2) Respiratory syncytial virus (RSV) infection: Code(s): B33.8 - Other specified viral diseases Status: Acute Assessment and Plan: Bilateral rales wtih rhonchi Bilateral pedal edema (3) Coronary artery disease: Code(s): I25.10 - Atherosclerotic heart disease of [place] coronary artery without angina pectoris Status: Acute (4) Atrial fibrillation with RVR: Code(s): I48.91 - Unspecified atrial fibrillation Status: Acute Assessment and Plan: Cardiology: I am going to prescribe his previous dose of oral diltiazem, stop the diltiazem drip.? I am going to change his metoprolol to metoprolol succinate at a dosage of 50 mg daily.? I will give him 1 dose of IV furosemide this afternoon and continue to follow him at with you during this hospitalization.? Upon discharge he plans to stay in the [facility] for about 3 or 4 more weeks before going back to [place].? It will be important that he has prescriptions for his medications at the time of discharge since he has not been taking his diltiazem or his diuretic likely the reason for he having a decompensation with RVR and volume overload.? Regarding his anti-platelet therapy I am going to start clopidogrel 75 mg daily.? We will not start aspirin in hopes of avoiding so-called triple therapy. (5) Hypertension: Code(s): I10 - Essential (primary) hypertension Status: Acute (6) Hyperlipidemia: Code(s): E78.5 - Hyperlipidemia, unspecified Status: Acute (7) Benign prostatic hyperplasia: Code(s): N40.0 - Benign prostatic hyperplasia without lower urinary tract symptoms Status: Acute (8) Asthma exacerbation: Code(s): J45.901 - Unspecified asthma with (acute) exacerbation Status: Acute (9) Hypokalemia: Code(s): E87.6 - Hypokalemia Status: Acute Assessment and Plan: Replete and monitor Plan Acute and principal conditions 1. Acute hypoxic respiratory failure 2. Asthma exacerbation 3. Fluid overload; Probable CHF exacerbation 4. RSV infection; URI 5. CAD. IV lasix, Ceftriaxone, Doxycycline DuoNebs; Supplemental oxygen IS; PEP; Anti-tussives Montelukast Plavix, BB, Statin 10/14/23:Will DC tomorrow Chronic and stable conditions 1. Chronic A-fib; wRVR. On Metoprolol, Eliquis 2. Hypertension. On Chlorthalidone, Metoprolol 3. Dyslipidemia. On Statin 4. BPH. on Tamsulosin Miscellaneous care. Code status. Full Disposition. Likely home when stable VTE prophylaxis. on Eliquis Nutrition. Heart healthy Time Spent With Patient Time with patient: 25 - 35 minutes Subjective Date/time seen: 10/14/23 16:24 Interval history: This is a pleasant 78-year-old gentleman with history of stroke, coronary artery disease and history of stents as recent as 4 months ago, hypertension, type 2 diabetes mellitus, and asthma who presented to the emergency department via private vehicle for evaluation of shortness of breath. 10/12/2023: He states that he feels little better. Breathing is better. No chest pain. 10/13/2023: Improved cough; lower extremity swellings are improving 10/14/23: Seen and examined; improved Review of Systems Review of Systems: Twelve systems were reviewed and are negative except for as per HPI. Constitutional: Constitutional: Reports fatigue Eyes: Eyes: Reports no additional eye complaints ENT: Reports system reviewed and no additional complaints, except as documented and Reports Normal hearing present Cardiovascular: Cardiovascular: Reports pedal edema, Reports leg edema and Reports dyspnea Respiratory: Respiratory: Reports cough, Reports dys
[2023-10-14] MEDS: POTASSIUM CHLORIDE 20 MEQ PACKET (FOR LIQUID) 40 MEQ PO (18:04)
[2023-10-14] MEDS: guaiFENesin/DEXTROMETHORPHAN 10 ML UDC PO (18:05)
[2023-10-15] VITALS (9 sets, daily range): BP systolic 136; BP diastolic 51; PULSE 60–100; RESP 20; TEMP 36.6; O2SAT 94–98
[2023-10-15] MEDS: IPRATROPIUM 0.5 MG/ALBUTEROL SULFATE 2.5 MG AMPUL.NEB 3 ML INHALATION ×2 (00:50→08:53)
[2023-10-15] MEDS: DOXYCYCLINE 100 MG/NS 100 ML 100 MG/100 ML BAG IVPB (06:04)
[2023-10-15 07:45] LABS: Basophils Percent Auto 0.1 % (0.2-1.2); Hematocrit 38.1 % (42.0-52.0); Hemoglobin 12.4 g/dL (14.0-18.0); Immature Granulocyte Absolute 0.07 K/mm3 (0.00-0.031); Immature Granulocyte Percent A 0.5 % (0-0.5); Lymphocytes Absolute Auto 1.13 K/mm3 (0.9-3.2); Lymphocytes Percent Auto 7.3 % (18.3-44.2); Mean Corpuscular HGB Conc 32.5 g/dl (32-36); Mean Corpuscular Hemoglobin 28.8 pg (26-34); Mean Corpuscular Volume 88.6 fl (80-100); Mean Platelet Volume 9.6 fl (7.4-10.4); Monocytes Absolute Auto 0.4 K/mm3 (0.1-0.6); Monocytes Percent Auto 2.4 % (2.6-8.5); Neutrophils Percent Auto 89.7 % (45.5-73.1); Platelet Count Result 277 k/mm3 (150-375); Red Cell Distribution Width 13.1 % (11.5-14.5); White Blood Count 15.6 K/mm3 (4.5-10.0)
[2023-10-15 07:53] LABS: Alanine Aminotransferase 26 U/L (6-50); Albumin Level 3.5 g/dL (3.5-5.1); Alkaline Phosphatase 60 U/L (38-126); Anion Gap 4 mmol/L (8-16); Aspartate Amino Transferase 37 U/L (17-59); Bilirubin,Total 0.4 mg/dL (0.2-1.3); Blood Urea Nitrogen 25 mg/dL (9-20); Carbon Dioxide 30 mmol/L (22-30); Chloride 102 mmol/L (98-107); Estimated CRCL calculation 59 ml/min; Estimated Glomerular Filt Rate > 60; Glucose 198 mg/dL (65-110); Potassium 3.5 mmol/L (3.4-5.0); Sodium 136 mmol/L (137-145)
--- NOTE | 2023-10-15 09:46 | PM.PNCARD ---
Progress Note: A&P Assessment and Plan (1) Atrial fibrillation with RVR: Code(s): I48.91 - Unspecified atrial fibrillation Status: Acute Assessment and Plan: Rate well controlled. Continue oral diltiazem and metoprolol. Continue Eliquis. (2) Coronary artery disease: Code(s): I25.10 - Atherosclerotic heart disease of [place] coronary artery without angina pectoris Status: Acute Assessment and Plan: Clopidogrel added. No aspirin to be given to avoid triple therapy. Continue rosuvastatin, metoprolol (3) Hypertension: Code(s): I10 - Essential (primary) hypertension Status: Acute Assessment and Plan: Fairly well controlled (4) Hypokalemia: Code(s): E87.6 - Hypokalemia Status: Acute Assessment and Plan: 3.5 today. (5) CHF exacerbation: Qualifiers: Heart failure type: unspecified Qualified Code(s): I50.9 - Heart failure, unspecified Code(s): I50.9 - Heart failure, unspecified Status: Acute Assessment and Plan: Probably diastolic in etiology and worsened by AFib RVR. He has only mild edema on exam and lungs sound clear. Will shift to p.o. furosemide today. Subjective Date/time seen: 10/15/23 09:46 Interval history: This is a pleasant 78-year-old gentleman with history of stroke, coronary artery disease and history of stents as recent as 4 months ago, hypertension, type 2 diabetes mellitus, and asthma who presented to the emergency department via private vehicle for evaluation of shortness of breath. Date of service 10/12/2023: He states that he feels little better. Breathing is better. No chest pain. Date of service 10/13/2023: Has a little swelling his right foot but no chest pain, shortness breath Date of service 10/15/2023: Continues to feel better today. Denies any palpitations, shortness of breath, chest pain. He was able to sleep lying flat all night last night. Has minimal swelling. Review of Systems Constitutional: Constitutional: Reports fatigue and Reports lethargy Eyes: Eyes: Reports no additional eye complaints ENT: Reports system reviewed and no additional complaints, except as documented Cardiovascular: Cardiovascular: Reports pedal edema and Reports dyspnea Respiratory: Respiratory: Reports dyspnea and Reports wheezing Gastrointestinal: Gastrointestinal: Reports no additional gastrointestinal complaints Musculoskeletal: Musculoskeletal: Reports no additional musculoskeletal complaints Integumentary/Breasts: Skin/Breast: Reports system reviewed and no additional complaints, except as docu Neurologic: Reports system reviewed and no additional complaints, except as documented Endocrine: Endocrine: Reports no additional endocrine complaints and Reports fatigue Hematologic/Lymphatic: Hematologic/Lymphatic: Reports no additional hematologic/lymphatic complaints Allergic/Immunologic: Allergic/Immunologic: Reports no additional allergic/immunologic complaints and Reports wheezing Exam Const: Other: Well-developed well-nourished gentleman HENMT: Mouth: Yes moist mucous membranes Eyes: Sclera: sclerae normal Neck: Neck: supple Resp: Effort & Inspection: normal respiratory effort Auscultation: clear to auscultation bilaterally and no rales Cardio: Rate: regular rate Rhythm: abnormal rhythm irregularly irregular GI: Auscultation: normal bowel sounds Skin: General skin exam: normal color Neuro: Other: Alert and oriented Extrem: Other: Adequate perfusion, mild bipedal edema Psych: Affect: normal affect Objective Data Vital Signs Vital Signs: Vital Signs - 24 hr 10/14/23 14:00 10/14/23 16:07 10/14/23 16:13 Temperature 36.6 C Pulse Rate 81 78 60 Respiratory Rate 16 20 20 Blood Pressure 120/52 L Pulse Oximetry 94 Oxygen Delivery 10/14/23 16:00 10/14/23 21:23 10/14/23 20:00 Temperature 37.0 C Pulse Rate 66 65 65 Respir
[2023-10-15] MEDS: ROSUVASTATIN 10 MG TABLET 40 MG PO (10:09)
[2023-10-15] MEDS: guaiFENesin/DEXTROMETHORPHAN 10 ML UDC PO ×2 (10:09→13:13)
[2023-10-15] MEDS: TAMSULOSIN HCL 0.4 MG CAPSULE PO (10:10)
[2023-10-15] MEDS: methylPREDNISolone SOD SUCC 40 MG VIAL IV PUSH (10:10)
[2023-10-15] MEDS: dilTIAZem HCL CD 180 MG CAP.24HR 360 MG PO (10:10)
[2023-10-15] MEDS: ACETAMINOPHEN 325 MG TABLET 650 MG PO (10:11)
[2023-10-15] MEDS: METOPROLOL SUCCINATE EXT REL 50 MG TABCR PO (10:11)
[2023-10-15] MEDS: MONTELUKAST SODIUM 10 MG TABLET PO (10:11)
[2023-10-15] MEDS: CLOPIDOGREL BISULFATE 75 MG TABLET PO (10:11)
[2023-10-15] MEDS: CHLORTHALIDONE 25 MG TABLET PO (10:11)
[2023-10-15] MEDS: APIXABAN 5 MG TABLET PO (10:17)
[2023-10-15 11:46] LABS: Procalcitonin 0.1 ng/mL
--- NOTE | 2023-10-15 14:12 | PM.DS ---
DS: Admitting Diagnosis Discharge Date 10/15/23 Admitting Diagnosis Acute and principal conditions 1. Acute hypoxic respiratory failure; Probable Pneumonia 2. Asthma exacerbation 3. Fluid overload; Probable CHF exacerbation 4. RSV infection;?URI 5. CAD. DS: Discharge Diagnosis Discharge Diagnosis (1) CHF exacerbation: Qualifiers: Heart failure type: unspecified Qualified Code(s): I50.9 - Heart failure, unspecified Code(s): I50.9 - Heart failure, unspecified Status: Acute Assessment and Plan: Cardiology on board; furosemide (2) Respiratory syncytial virus (RSV) infection: Code(s): B33.8 - Other specified viral diseases Status: Acute Assessment and Plan: Bilateral rales wtih rhonchi Bilateral pedal edema (3) Coronary artery disease: Code(s): I25.10 - Atherosclerotic heart disease of [place] coronary artery without angina pectoris Status: Acute (4) Atrial fibrillation with RVR: Code(s): I48.91 - Unspecified atrial fibrillation Status: Acute Assessment and Plan: Cardiology: I am going to prescribe his previous dose of oral diltiazem, stop the diltiazem drip.? I am going to change his metoprolol to metoprolol succinate at a dosage of 50 mg daily.? I will give him 1 dose of IV furosemide this afternoon and continue to follow him at with you during this hospitalization.? Upon discharge he plans to stay in the [facility] for about 3 or 4 more weeks before going back to [place].? It will be important that he has prescriptions for his medications at the time of discharge since he has not been taking his diltiazem or his diuretic likely the reason for he having a decompensation with RVR and volume overload.? Regarding his anti-platelet therapy I am going to start clopidogrel 75 mg daily.? We will not start aspirin in hopes of avoiding so-called triple therapy. (5) Hypertension: Code(s): I10 - Essential (primary) hypertension Status: Acute (6) Hyperlipidemia: Code(s): E78.5 - Hyperlipidemia, unspecified Status: Acute (7) Benign prostatic hyperplasia: Code(s): N40.0 - Benign prostatic hyperplasia without lower urinary tract symptoms Status: Acute (8) Asthma exacerbation: Code(s): J45.901 - Unspecified asthma with (acute) exacerbation Status: Acute (9) Hypokalemia: Code(s): E87.6 - Hypokalemia Status: Acute Assessment and Plan: Replete and monitor Plan Acute and principal conditions 1. Acute hypoxic respiratory failure 2. Asthma exacerbation 3. Fluid overload; Probable CHF exacerbation 4. RSV infection; URI 5. CAD. IV lasix, Ceftriaxone, Doxycycline DuoNebs; Supplemental oxygen IS; PEP; Anti-tussives Montelukast Plavix, BB, Statin 10/14/23:Will DC tomorrow 10/15/23: Discharged today Chronic and stable conditions 1. Chronic A-fib; wRVR. On Metoprolol, Eliquis 2. Hypertension. On Chlorthalidone, Metoprolol 3. Dyslipidemia. On Statin 4. BPH. on Tamsulosin Miscellaneous care. Code status. Full Disposition. Likely home when stable VTE prophylaxis. on Eliquis Nutrition. Heart healthy DS: Summary Hospital Course Reason for hospitalization: Acute and principal conditions 1. Acute hypoxic respiratory failure 2. Asthma exacerbation 3. Fluid overload; Probable CHF exacerbation 4. RSV infection;?URI 5. CAD. Hospital Course: This is a pleasant 78-year-old gentleman with history of stroke, coronary artery disease and history of stents as recent as 4 months ago, hypertension, type 2 diabetes mellitus, and asthma who presented to the emergency department via private vehicle for evaluation of shortness of breath. The patient's primary language is tim and his son and [id number] translate the following history. The patient lives in [place], [place] and has been staying with his family here for the last couple of months. Two weeks ago he ran out of his chlorthalidone
--- NOTE | 2023-10-15 17:47 | PC.NURSE ---
This RN explained discharge paperwork via pt daughter. 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 Education given regarding new meds, inhaler, CHF. Daughter and patient voice understanding. Pt demonstrated use of neb, inhaler with spacer, and capella. Metoprolol clarified as 50 metoprolol succinate. This RN called provider regarding pt needing chlorthalidone as home supply is out. Provider stated he should not be on both chlorthalidone and furosemide. Provider made aware that pt had been receiving both in patient. Provider said to d/c home medication and use only furosemide 40mg PO BID. Daughter voices understanding. Pt agreeable. Both made aware and given our phone number regarding any questions.
== END 2023-10-15 15:50 | disposition home or self-care (01) | DRG 139 ==
LOC: ANHED 16:43 → ANHIMU 18:22 → ANH3MEDSUR 10-13 14:15
PROVIDERS: Emergency Medicine; Physician Assistant; Admitting Provider Internal Medicine; Emergency Provider Student in an Organized Health Care Education/Training Program; Visit Provider Internal Medicine
DX: J18.9 Pneumonia, unspecified organism (principal); J96.01 Acute respiratory failure with hypoxia; J45.901 Unspecified asthma with (acute) exacerbation; I50.33 Acute on chronic diastolic (congestive) heart failure; J06.9 Acute upper respiratory infection, unspecified; B97.4 Respiratory syncytial virus as the cause of diseases classified elsewhere; E78.5 Hyperlipidemia, unspecified; E11.9 Type 2 diabetes mellitus without complications; E87.6 Hypokalemia; I25.10 Atherosclerotic heart disease of native coronary artery without angina pectoris; I11.0 Hypertensive heart disease with heart failure; I50.32 Chronic diastolic (congestive) heart failure; I48.0 Paroxysmal atrial fibrillation; N40.0 Benign prostatic hyperplasia without lower urinary tract symptoms; Z86.73 Personal history of transient ischemic attack (TIA), and cerebral infarction without residual deficits; Z95.5 Presence of coronary angioplasty implant and graft; Z79.01 Long term (current) use of anticoagulants
CPT/HCPCS: 36415; 71045; 71275; 80048; 80053; 80307; 81001; 82948; 83735; 83880; 84145; 84443; 84484; 85025; 85027; 85380; 85610; 85730; 87040; 87637; 93005; 93970; 94640; 94667; 96365; 96367; 96374; 96375; 99285; A9270; C8929; G0378; J0456; J0696; J1940; J2920; Q9957; Q9967